=== PATIENT | female | born 1990 | race African-American/Black ===

== ENCOUNTER 2021-07-17 11:51 | Emergency (ER) | payer BC, SELFPAY ==
[2021-07-17 12:03] VITALS: BP 150/97; PULSE 88; RESP 16; TEMP 37.4; O2SAT 100
--- NOTE | 2021-07-17 12:33 | ED.URI ---
HPI - URI/Sore Throat General Chief Complaint: Upper Respiratory Infection Stated Complaint: Sore Throat Time Seen by Provider: 07/17/21 12:34 Source: patient, RN notes reviewed and old records reviewed Mode of arrival: ambulatory Limitations: no limitations History of Present Illness HPI Narrative: 31-year-old female presents to the [facility] with complaints of a sore throat for 3 days. Has been fighting cold-like symptoms since Andrew, 9 day. Swollen lymph nodes MD elicited complaint: sore throat Related Data Home Medications Medication Instructions Recorded Confirmed amlodipine 10 mg PO DAILY 07/17/21 07/17/21 losartan-hydrochlorothiazide 1 tablet PO DAILY 07/17/21 07/17/21 Allergies Allergy/AdvReac Type Severity Reaction Status Date / Time No Known Allergies Allergy Verified 07/17/21 12:20 Review of Systems Review of Systems: All systems reviewed & are unremarkable except as noted in HPI and below Constitutional: Constitutional: Reports no additional constitutional complaints, Denies chills and Denies fever(s) Eyes: Eyes: Reports no additional eye complaints ENT: Reports as per HPI Cardiovascular: Cardiovascular: Reports no additional cardiovascular complaints and Denies chest pain Respiratory: Respiratory: Denies cough, Denies dyspnea and Denies wheezing Gastrointestinal: Gastrointestinal: Reports no additional gastrointestinal complaints Genitourinary: Genitourinary: Reports no additional female genitourinary complaints Musculoskeletal: Musculoskeletal: Reports no additional musculoskeletal complaints Integumentary/Breasts: Skin/Breast: Reports system reviewed and no additional complaints, except as docu Neurologic: Reports system reviewed and no additional complaints, except as documented Psychiatric: Psychiatric: Reports no additional psychiatric complaints Allergic/Immunologic: Allergic/Immunologic: Reports no additional allergic/immunologic complaints Exam Const: General: no acute distress, alert and ill appearing acutely (Mild) Nutritional Appearance: well nourished Orientation/consciousness: patient oriented x3 Limitations: no limitations HENMT: Head: normal to inspection Ears: external ears normal, TM's normal bilaterally and EAC's normal Eyes: Pupils: Equal, round and reactive pupils present Neck: Neck: lymphadenopathy bilateral submandibular soft and tender Chest: Chest palpation & inspection: normal inspection of the chest Resp: Effort & Inspection: normal respiratory effort and no use of accessory muscles Auscultation: clear to auscultation bilaterally, no crackles, no rales, no rhonchi and no wheezes Cardio: Rate: regular rate Rhythm: regular rhythm GI: GI Palp: Yes Soft to palpation and No Tenderness to palpation present (GI) : General: Yes no CVA tenderness Back/Spine/Pelvis: Back: no CVA tenderness Skin: General skin exam: normal color Rashes: no rashes Wounds: no wounds Neuro: General: patient oriented x3, moves all extremities, no meningeal signs and no focal motor deficits Speech: normal speech Gait exam (Neuro): Normal gait present Extrem: General: normal to inspection Psych: Appearance: grossly normal and well kempt Mental Status: mental status grossly normal Affect: normal affect Attitude: cooperative Thought content: Yes Normal thought content present Course Course Emergency Course: Discharge instructions reviewed with patient, as well as provided in writing per nursing staff. The instructions also include specific and strict return/GO TO THE ER as well as f/u information. All questions have been answered, and the patient deny any further questions with discharge and discharge plan. Level of Care: Express Care Visit Vital Signs Vital signs: Vital Signs Temperature 99.4 F 07/17/21 12:03 Pulse Rate 88 07/17/21 12:03 Respiratory Rate 16 07/17/21 12:03 Blood Pressure 150/97 H 07/17/21 12:03 Pulse Oximetry 100 07/17/21 12:03
== END 2021-07-17 13:30 | disposition home or self-care (01) ==
PROVIDERS: Emergency Provider Nurse Practitioner
DX: R59.0 Localized enlarged lymph nodes (principal); J02.9 Acute pharyngitis, unspecified
CPT/HCPCS: 36416; 86308; 87081; 87880; 99213; G0463

== ENCOUNTER 2021-11-21 13:12 | Emergency (ER) | payer BC, SELFPAY ==
--- NOTE | ~2021-11-21 | XR_ITS ---
XR chest 2V DATE: 11/21/2021 13:43 INDICATION: Nonproductive cough, congestion for 2 days TECHNIQUE: 2 views COMPARISON: None FINDINGS: Normal heart size. No hilar or mediastinal enlargement. The lungs are normally inflated and clear of infiltrate or consolidation. No pleural effusion or pulmonary vascular congestion or pneumo thorax. Included skeletal structures are unremarkable. IMPRESSION: Negative chest Reviewed, dictated and finalized at location B. IMPRESSION: Negative chest
[2021-11-21 13:25] VITALS: BP 131/80; PULSE 98; RESP 16; TEMP 37.4; O2SAT 98
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
== END 2021-11-21 13:56 | disposition home or self-care (01) ==
PROVIDERS: Emergency Provider Nurse Practitioner Family
DX: J20.9 Acute bronchitis, unspecified (principal); I10 Essential (primary) hypertension
CPT/HCPCS: 71046; 99213; G0463

== ENCOUNTER 2021-11-28 08:29 | Emergency (ER) | payer BC, SELFPAY ==
[2021-11-28 08:49] VITALS: BP 134/93; PULSE 85; RESP 16; TEMP 36.3; O2SAT 100
--- NOTE | 2021-11-28 10:22 | ED.URI ---
HPI - URI/Sore Throat General Chief Complaint: Upper Respiratory Infection Stated Complaint: congestion, chills Time Seen by Provider: 11/28/21 09:18 Source: patient History of Present Illness HPI Narrative: 31 y/o female presents to the ER today for problems with sinus congestion, sinus pain and headache. She has cough and feels congested in her chest. Symptoms started 9 days ago. She was seen at urgent care last Saturday. They gave her prednisone which helped with her cough and respiratory symptoms. However, now she is having more sinus drainage and sinus pain. No fever or chills. No n/v/d. She denies feeling short of breath. She gets occasional wheezing but uses and inhaler for this and finds it helpful. Related Data Home Medications Medication Instructions Recorded Confirmed amlodipine 10 mg PO DAILY 07/17/21 11/21/21 losartan-hydrochlorothiazide 1 tablet PO DAILY 07/17/21 11/21/21 norethindrone (contraceptive) 0.35 mg PO DAILY 11/21/21 11/21/21 Allergies Allergy/AdvReac Type Severity Reaction Status Date / Time No Known Allergies Allergy Verified 11/21/21 13:18 Review of Systems Constitutional: Constitutional: Denies chills, Denies fatigue and Denies fever(s) Eyes: Eyes: Reports no additional eye complaints ENT: Reports as per HPI, Reports nasal congestion and Denies sore throat Cardiovascular: Cardiovascular: Denies chest pain Respiratory: Respiratory: Reports chest congestion, Reports cough, Denies dyspnea and Reports wheezing Gastrointestinal: Gastrointestinal: Denies diarrhea, Denies nausea and Denies vomiting Genitourinary: Genitourinary: Reports no additional female genitourinary complaints Musculoskeletal: Musculoskeletal: Denies myalgias and Denies arthralgias Integumentary/Breasts: Skin/Breast: Reports system reviewed and no additional complaints, except as docu and Denies rash Neurologic: Denies dizziness and Reports headache(s) Psychiatric: Psychiatric: Reports no additional psychiatric complaints Endocrine: Endocrine: Reports no additional endocrine complaints Hematologic/Lymphatic: Hematologic/Lymphatic: Reports no additional hematologic/lymphatic complaints Allergic/Immunologic: Allergic/Immunologic: Reports no additional allergic/immunologic complaints Exam Const: General: healthy appearing, no acute distress and alert Orientation/consciousness: patient oriented x3 HENMT: Head: normal to inspection Face and sinus: sinus tenderness frontal and ethmoid Throat: posterior oropharynx normal Eyes: Conjunctivae: conjunctivae normal Neck: Neck: normal visual inspection Chest: Chest palpation & inspection: normal inspection of the chest Resp: Effort & Inspection: normal respiratory effort Auscultation: clear to auscultation bilaterally, no crackles, no rales, no rhonchi and no wheezes Cardio: Rate: regular rate Rhythm: regular rhythm : General: Yes no CVA tenderness Urinary Catheter: Urinary Catheter: other Skin: General skin exam: normal color Rashes: no rashes Neuro: General: patient oriented x3, moves all extremities and no meningeal signs Extrem: General: normal to inspection Psych: Mental Status: mental status grossly normal Affect: normal affect Attitude: cooperative Course Vital Signs Vital signs: Vital Signs Temperature 36.3 C L 11/28/21 08:49 Pulse Rate 85 11/28/21 08:49 Respiratory Rate 16 11/28/21 08:49 Blood Pressure 134/93 H 11/28/21 08:49 Pulse Oximetry 100 11/28/21 08:49 Temperature 36.3 C L 11/28/21 08:49 Pulse Rate 85 11/28/21 08:49 Respiratory Rate 16 11/28/21 08:49 Blood Pressure 134/93 H 11/28/21 08:49 Pulse Oximetry 100 11/28/21 08:49 MDM - URI/Sore Throat Differential Diagnosis Differential diagnosis: Likely upper respiratory infection, sinusitis, viral infection, bronchitis, influenza and pharyngitis Discharge Plan Discharge Clinical Impression: Sinusitis Patient Disposition: Home, Self-Car
[2021-11-28 10:54] VITALS: BP 126/74; PULSE 84; RESP 18; TEMP 36.4; O2SAT 100
== END 2021-11-28 11:00 | disposition home or self-care (01) ==
PROVIDERS: Emergency Provider Nurse Practitioner Family
DX: J32.9 Chronic sinusitis, unspecified (principal)
CPT/HCPCS: 99283

== ENCOUNTER → 2022-01-11 09:11 | Outpatient (CLI) | payer BC, SELFPAY ==
--- NOTE | ~2022-01-11 | MMUS_ITS ---
EXAMINATION: MM diagnostic yaquelin BI w isra, US breast LT complete HISTORY: Left breast lump felt by physician. TECHNIQUE: Additional 3-D tomosynthesis images of the breasts were performed and synthetic 2-D images were generated. CAD analysis was submitted and interpreted. High resolution complete left breast ult rasound was performed. COMPARISON: No prior studies for comparison. BREAST PARENCHYMAL COMPOSITION: Breast composition is almost entirely fatty FINDINGS: MAMMOGRAPHIC FINDINGS: There are no suspicious masses, calcifications or architectural distortion in the left breast to sugg est malignancy. ULTRASOUND: Complete US of all 4 quadrants of the left breast and retroareolar region was reviewed. Normal hetero geneous echotexture without focal solid or cystic mass. IMPRESSION: 1. No evidence for malignancy in either breast. 2. Routine yearly screening mammogram and regular clinical breast examination are recommended. BI-RADS Category 1: Negative Reviewed, dictated and finalized at location A. IMPRESSION: 1. No evidence for malignancy in either breast. 2. Routine yearly screening mammogram and regular clinical breast examination a re recommended. BI-RADS Category 1: Negative
== END ==
PROVIDERS: PCP Nurse Practitioner; Visit Provider Nurse Practitioner
DX: N63.20 Unspecified lump in the left breast, unspecified quadrant (principal)
CPT/HCPCS: 76641; 77062; 77066; G0279

== ENCOUNTER 2022-04-18 08:11 | Emergency (ER) | payer BC, MEDICAID, SELFPAY ==
--- NOTE | ~2022-04-18 | CT_ITS ---
EXAMINATION: CT abdomen pelvis w con DATE: 04/18/2022 10:02 INDICATION: Left upper quadrant abdominal pain. Nausea. TECHNIQUE: Computed tomography (CT) of the abdomen and pelvis was performed with 100 mL Omnipaque 350 intravenous contrast. Automated exposure control and iterative reconstruction technique were employe d. The dose-length product was 480.02 mGy-cm. COMPARISON: None. FINDINGS: The visualized portions of the lung bases are clear without pneumonia or pleural effusion. The heart size is normal. No pericardial effusion. The liver, gallbladder, spleen, pancreas, adrenal glands, and kidneys are normal. There is a 4.3 cm fibroid in the uterus. There are no dilated loops o f bowel. The appendix is normal. There are no pathologically enlarged lymph nodes. There is physiolog ic fluid in the pelvis. There is a 2.6 cm corpus luteum cyst in right ovary. There is mild thoracolum bar spondylosis. IMPRESSION: 1. Uterine fibroid. Reviewed, dictated and finalized at location A. IMPRESSION: 1. Uterine fibroid.
[2022-04-18 08:13] VITALS: BP 135/89; PULSE 89; RESP 14; TEMP 36.5; O2SAT 100
--- NOTE | 2022-04-18 08:41 | ED.ABDPAIN ---
HPI - Abdominal Pain General Chief Complaint: Abdominal Pain Stated Complaint: ABD PAIN Time Seen by Provider: 04/18/22 08:37 History of Present Illness HPI narrative: Ot presents with LUQ and left chest pain for two months. Pt says was intermittent at first but now constant for a month. Pt denies injury. Pt denies fever or vomiting. Pt says she eats a lot of spicy food. Pt has seen her PCP but not helped or diagnosed so far. Related Data Home Medications Medication Instructions Recorded Confirmed amlodipine 10 mg tablet 10 mg PO DAILY 07/17/21 11/21/21 losartan 100 1 tablet PO DAILY 07/17/21 11/21/21 mg-hydrochlorothiazide 25 mg tablet norethindrone (contraceptive) 0.35 0.35 mg PO DAILY 11/21/21 11/21/21 mg tablet Allergies Allergy/AdvReac Type Severity Reaction Status Date / Time No Known Allergies Allergy Verified 04/18/22 08:11 Review of Systems Review of Systems: All systems reviewed & are unremarkable except as noted in HPI and below Exam Const: General: healthy appearing and no acute distress Nutritional Appearance: well nourished Orientation/consciousness: patient oriented x3 Limitations: no limitations Neck: Neck: normal visual inspection, no lymphadenopathy and no meningeal signs Chest: Chest palpation & inspection: tenderness (to superficial palpation and touch left side of chest) Resp: Effort & Inspection: normal respiratory effort Auscultation: clear to auscultation bilaterally Cardio: Rate: regular rate Rhythm: regular rhythm GI: GI Palp: Yes Soft to palpation and Yes Tenderness to palpation present (GI) (tender to light touch LUQ) Auscultation: normal bowel sounds Back/Spine/Pelvis: Back: no CVA tenderness Skin: General skin exam: normal color Rashes: no rashes Wounds: no wounds Neuro: General: patient oriented x3, moves all extremities, no meningeal signs and no focal motor deficits Cranial nerves: Yes Nystagmus not present Speech: normal speech Extrem: General: normal to inspection and no clubbing, cyanosis or edema Psych: Mental Status: mental status grossly normal Affect: normal affect Attitude: cooperative Course Vital Signs Vital signs: Vital Signs Temperature 97.7 F 04/18/22 08:13 Pulse Rate 89 04/18/22 08:13 Respiratory Rate 14 04/18/22 08:13 Blood Pressure 135/89 04/18/22 08:13 Pulse Oximetry 100 04/18/22 08:13 Oxygen Delivery Room Air 04/18/22 08:13 Temperature 97.7 F 04/18/22 08:13 Pulse Rate 85 04/18/22 11:18 Respiratory Rate 19 04/18/22 11:18 Blood Pressure 123/85 04/18/22 11:18 Pulse Oximetry 97 04/18/22 11:18 Oxygen Delivery Room Air 04/18/22 08:13 MDM - Abdominal Pain Lab Data Result diagrams: 04/18/22 08:46 04/18/22 08:46 Labs: Lab Results 04/18/22 04/18/22 04/18/22 Range/Units 08:46 08:46 09:25 WBC 9.5 (4.5-10.0) K/mm3 RBC 4.61 (4.2-5.4) M/mm3 Hgb 12.1 (12.0-15.0) g/dL Hct 40.3 (37.0-47.0) % MCV 87.4 (80-100) fl MCH 26.2 (26-34) pg MCHC 30.0 L (32-36) g/dl RDW 13.9 (11.5-14.5) % Plt Count 292 (150-375) k/mm3 MPV 10.8 H (7.4-10.4) fl Immature Gran % (Auto) 0.2 (0-0.5) % Neut % (Auto) 48.2 (45.5-73.1) % Lymph % (Auto) 35.6 (18.3-44.2) % [place] % (Auto) 9.3 H (2.6-8.5) % Eos % (Auto) 5.9 H (0-4.4) % Baso % (Auto) 0.8 (0.2-1.2) % Lymph # (Auto) 3.37 H (0.9-3.2) K/mm3 [place] # (Auto) 0.9 H (0.1-0.6) K/mm3 Eos # (Auto) 0.6 H (0-0.3) K/mm3 Baso # (Auto) 0.1 (0.0-0.1) K/mm3 Abs Immat Gran (auto) 0.02 (0.00-0.031) K/mm3 Absolute Neuts (auto) 4.6 (1.3-6.7) K/mm3 Absolute Nucleated RBC 0.0 (0.0-0.012) K/mm3 Nucleated RBC % 0.0 (0.0-0.2) % Sodium 140 (137-145) mmol/L Potassium 3.5 (3.4-5.0) mmol/L Chloride 105 (98-107) mmol/L Carbon Dioxide 25 (22-30) mmol/L Anion Gap 10 (8-16) mmol/L BUN 19 H (7-17) mg/dL Creatini
[2022-04-18 08:51] LABS: Basophils Absolute Auto 0.1 K/mm3 (0.0-0.1); Basophils Percent Auto 0.8 % (0.2-1.2); Eosinophils Absolute Auto 0.6 K/mm3 (0-0.3); Eosinophils Percent Auto 5.9 % (0-4.4); Hematocrit 40.3 % (37.0-47.0); Hemoglobin 12.1 g/dL (12.0-15.0); Immature Granulocyte Absolute 0.02 K/mm3 (0.00-0.031); Immature Granulocyte Percent A 0.2 % (0-0.5); Lymphocytes Absolute Auto 3.37 K/mm3 (0.9-3.2); Lymphocytes Percent Auto 35.6 % (18.3-44.2); Mean Corpuscular Hemoglobin 26.2 pg (26-34); Mean Corpuscular Volume 87.4 fl (80-100); Mean Platelet Volume 10.8 fl (7.4-10.4); Monocytes Absolute Auto 0.9 K/mm3 (0.1-0.6); Monocytes Percent Auto 9.3 % (2.6-8.5); Neutrophils Absolute Auto 4.6 K/mm3 (1.3-6.7); Neutrophils Percent Auto 48.2 % (45.5-73.1); Platelet Count Result 292 k/mm3 (150-375); Red Blood Count 4.61 M/mm3 (4.2-5.4); Red Cell Distribution Width 13.9 % (11.5-14.5); White Blood Count 9.5 K/mm3 (4.5-10.0)
[2022-04-18] MEDS: KETOROLAC 30 MG/ML VIAL (*BKC) IV PUSH (08:53)
[2022-04-18 09:03] LABS: Alanine Aminotransferase 28 U/L (6-35); Albumin Level 4.4 g/dL (3.5-5.1); Alkaline Phosphatase 59 U/L (38-126); Anion Gap 10 mmol/L (8-16); Aspartate Amino Transferase 34 U/L (14-36); Bilirubin,Total 0.3 mg/dL (0.2-1.3); Blood Urea Nitrogen 19 mg/dL (7-17); Calcium 8.9 mg/dL (8.4-10.2); Carbon Dioxide 25 mmol/L (22-30); Chloride 105 mmol/L (98-107); Estimated Glomerular Filt Rate > 60; Glucose 99 mg/dL (65-110); Lipase 96 U/L (23-300); Potassium 3.5 mmol/L (3.4-5.0); Sodium 140 mmol/L (137-145)
[2022-04-18 09:52] LABS: Add Urine Microscopic? YES; Appearance Urine Cloudy (Clear); Bilirubin Urine Negative (Negative); Blood Urine 2+ (Negative); Color Urine Yellow (Yellow); Glucose Urine UA Negative (Negative); Ketones Urine Negative (Negative); Leukocyte Esterase Ur Negative LEU/UL (Negative); Nitrate Urine Negative (Negative); Protein Urine Trace mg/dL (Negative); Specific Grav Ur 1.025 (1.001-1.035); Urobilinogen Urine 0.2 mg/dL (<2.0)
[2022-04-18 10:02] LABS: Bacteria Urine Trace /hpf; Mucus Urine Few /lpf; Squamous Epithelial Cell Urine Many /hpf (Few)
[2022-04-18 11:18] VITALS: BP 123/85; PULSE 85; RESP 19; O2SAT 97
== END 2022-04-18 11:10 | disposition home or self-care (01) ==
PROVIDERS: Emergency Provider Emergency Medicine
DX: R07.89 Other chest pain (principal); R10.12 Left upper quadrant pain; D25.9 Leiomyoma of uterus, unspecified
CPT/HCPCS: 36415; 74177; 80053; 81001; 81025; 83690; 85025; 96374; 99284; J1885; Q9967

== ENCOUNTER 2022-04-27 22:00 | Emergency (ER) | payer BC, MEDICAID, SELFPAY ==
[2022-04-27 22:03] VITALS: BP 124/81; PULSE 102; RESP 16; TEMP 37.3; O2SAT 100
[2022-04-28 00:09] VITALS: BP 122/84; PULSE 83; RESP 17; TEMP 36.3; O2SAT 100
--- NOTE | 2022-04-28 00:16 | ED.ABDPAIN ---
HPI - Abdominal Pain General Chief Complaint: Abdominal Pain Stated Complaint: pelvic pain Time Seen by Provider: 04/27/22 23:59 History of Present Illness HPI narrative: Patient is a 31-year-old female with a history of hypertension presenting with abdominal pain. Patient states that for the last 3 days she has had lower abdominal cramping. States that it feels like menstrual cramps but more severe. She denies any vaginal bleeding or discharge. States that she has also been urinating more frequently than normal. Patient states that her last menstrual period was approximately 4 weeks ago. She reports nausea but no vomiting. States that she had a normal bowel movement about an hour ago. She denies fevers, chest pain, shortness of breath, cough, diarrhea, leg swelling. Related Data Home Medications Medication Instructions Recorded Confirmed amlodipine 10 mg tablet 10 mg PO DAILY 07/17/21 11/21/21 losartan 100 1 tablet PO DAILY 07/17/21 11/21/21 mg-hydrochlorothiazide 25 mg tablet norethindrone (contraceptive) 0.35 0.35 mg PO DAILY 11/21/21 11/21/21 mg tablet Allergies Allergy/AdvReac Type Severity Reaction Status Date / Time No Known Allergies Allergy Verified 04/27/22 22:02 Review of Systems Review of Systems: All systems reviewed & are unremarkable except as noted in HPI and below Exam Narrative: GENERAL: Well-appearing, well-nourished, and in no acute distress. HEAD: Normocephalic, atraumatic. EYES: PERRLA and EOMI. ENT: Nares clear, no rhinorrhea or epistaxis. Mucous membranes moist. NECK: Supple. CHEST: Clear to auscultation. No respiratory distress. HEART: Regular rate and rhythm. No murmur heard. Normal peripheral pulses. ABDOMEN: Soft, nontender, nondistended, normal active bowel sounds. EXTREMITIES: Normal range of motion. No edema. SKIN: Warm, dry, no rash. NEURO: No focal deficits. Alert and oriented x3. PSYCH: Normal mood and affect. Course Course Emergency Course: Patient is a 31-year-old female presenting with lower abdominal pain. Vitals are within normal limits. Patient is nontoxic and in no acute distress. Exam is remarkable for the above. Blood work is remarkable for mildly elevated beta-hCG at 85. On reevaluation, the patient is resting comfortably. She states that she feels more comfortable. Patient likely has a very early . I spoke with Dr. Murillo with [facility] who recommends repeat beta-hCG in 2 days. This order has been placed and I advised the patient to go to a [facility] location to have this completed on Saturday. Also provided the number for Dr. Murillo's office for the patient to call to schedule outpatient follow-up. Strict return precautions were given. Patient voiced understanding and is agreeable with plan. Discharged in stable condition. Vital Signs Vital signs: Vital Signs Temperature 99.2 F 04/27/22 22:03 Pulse Rate 102 H 04/27/22 22:03 Respiratory Rate 16 04/27/22 22:03 Blood Pressure 124/81 04/27/22 22:03 Pulse Oximetry 100 04/27/22 22:03 Oxygen Delivery Room Air 04/27/22 22:03 Temperature 97.4 F L 04/28/22 00:09 Pulse Rate 60 04/28/22 01:46 Respiratory Rate 17 04/28/22 01:46 Blood Pressure 109/78 04/28/22 01:46 Pulse Oximetry 100 04/28/22 01:46 Oxygen Delivery Room Air 04/27/22 22:03 MDM - Abdominal Pain Lab Data Result diagrams: 04/28/22 00:06 04/28/22 00:06 Labs: Lab Results 04/28/22 04/28/22 04/28/22 Range/Units 00:05 00:06 00:06 WBC 11.0 H (4.5-10.0) K/mm3 RBC 4.67 (4.2-5.4) M/mm3 Hgb 12.3 (12.0-15.0) g/dL Hct 40.3 (37.0-47.0) % MCV 86.3 (80-100) fl MCH 26.3 (26-34) pg MCHC 30.5 L (32-36) g/dl RDW 13.9 (11.5-14.5) % Plt Count 275 (150-375) k/mm3 MPV 10.6 H (7.4-10.4) fl Immature Gran % (Auto) 0.4 (0-0.5) % Neut % (Auto) 58.2 (45.5-73.1) % Lymph % (Auto) 27.2 (18.3-44.2) % [place] % (Auto) 9.3
[2022-04-28 00:23] LABS: Basophils Absolute Auto 0.1 K/mm3 (0.0-0.1); Basophils Percent Auto 0.6 % (0.2-1.2); Eosinophils Absolute Auto 0.5 K/mm3 (0-0.3); Eosinophils Percent Auto 4.3 % (0-4.4); Hematocrit 40.3 % (37.0-47.0); Hemoglobin 12.3 g/dL (12.0-15.0); Immature Granulocyte Absolute 0.04 K/mm3 (0.00-0.031); Immature Granulocyte Percent A 0.4 % (0-0.5); Lymphocytes Absolute Auto 2.98 K/mm3 (0.9-3.2); Lymphocytes Percent Auto 27.2 % (18.3-44.2); Mean Corpuscular HGB Conc 30.5 g/dl (32-36); Mean Corpuscular Hemoglobin 26.3 pg (26-34); Mean Corpuscular Volume 86.3 fl (80-100); Mean Platelet Volume 10.6 fl (7.4-10.4); Monocytes Percent Auto 9.3 % (2.6-8.5); Neutrophils Absolute Auto 6.4 K/mm3 (1.3-6.7); Neutrophils Percent Auto 58.2 % (45.5-73.1); Platelet Count Result 275 k/mm3 (150-375); Red Blood Count 4.67 M/mm3 (4.2-5.4); Red Cell Distribution Width 13.9 % (11.5-14.5)
--- NOTE | 2022-04-28 00:24 | PC.NURSE ---
Called lab to add on beta HCG. Spoke with
[2022-04-28 00:27] LABS: Add Urine Microscopic? YES; Appearance Urine Clear (Clear); Bilirubin Urine Negative (Negative); Blood Urine 1+ (Negative); Color Urine Yellow (Yellow); Glucose Urine UA Negative (Negative); Ketones Urine Negative (Negative); Leukocyte Esterase Ur Negative LEU/UL (Negative); Mucus Urine Rare /lpf; Nitrate Urine Negative (Negative); Protein Urine Negative (Negative); Specific Grav Ur 1.024 (1.001-1.035); Squamous Epithelial Cell Urine Rare /hpf (Few); Urobilinogen Urine Negative mg/dL (<2.0); WBC Urine 0-3 /hpf
[2022-04-28 00:31] LABS: Alanine Aminotransferase 18 U/L (6-35); Albumin Level 4.5 g/dL (3.5-5.1); Alkaline Phosphatase 55 U/L (38-126); Anion Gap 11 mmol/L (8-16); Aspartate Amino Transferase 27 U/L (14-36); Bilirubin,Total 0.2 mg/dL (0.2-1.3); Blood Urea Nitrogen 18 mg/dL (7-17); Calcium 9.7 mg/dL (8.4-10.2); Carbon Dioxide 25 mmol/L (22-30); Chloride 101 mmol/L (98-107); Estimated CRCL calculation 93 ml/min; Estimated Glomerular Filt Rate > 60; Glucose 95 mg/dL (65-110); Lipase 128 U/L (23-300); Potassium 3.3 mmol/L (3.4-5.0); Sodium 137 mmol/L (137-145)
[2022-04-28 00:39] VITALS: O2SAT 94
[2022-04-28 00:45] VITALS: O2SAT 100
[2022-04-28 00:57] LABS: Beta HCG Quantitative 85.39 mIU/ML
[2022-04-28 01:01] VITALS: BP 118/81
[2022-04-28 01:46] VITALS: BP 109/78; PULSE 60; RESP 17; O2SAT 100
[2022-04-28] MEDS: ONDANSETRON INJ 4 MG/2 ML VIAL IV PUSH (01:53)
== END 2022-04-28 02:46 | disposition home or self-care (01) ==
PROVIDERS: Emergency Medicine; Emergency Provider Emergency Medicine
DX: R10.30 Lower abdominal pain, unspecified (principal); R79.89 Other specified abnormal findings of blood chemistry; I10 Essential (primary) hypertension
CPT/HCPCS: 36415; 80053; 81001; 81025; 83690; 84702; 85025; 96365; 96375; 99284; J0131; J2405

== ENCOUNTER 2022-05-01 10:27 | Outpatient (CLI) | payer BC, MEDICAID, SELFPAY | END 2022-05-01 10:28 | disposition home or self-care (01) | PROVIDERS: Visit Provider Emergency Medicine | DX: E34.9 Endocrine disorder, unspecified (principal) | CPT/HCPCS: 36415; 84702 ==

== ENCOUNTER 2022-05-08 17:11 | Outpatient (CLI) | payer BC, MEDICAID, SELFPAY | END 2022-05-08 17:12 | disposition home or self-care (01) | LOC: ANHLAB 17:13 | PROVIDERS: Visit Provider Student in an Organized Health Care Education/Training Program | DX: E34.9 Endocrine disorder, unspecified (principal); N91.2 Amenorrhea, unspecified | CPT/HCPCS: 36415; 84702 ==

== ENCOUNTER 2022-05-12 08:04 | Emergency (ER) | payer BC, MEDICAID, SELFPAY ==
--- NOTE | ~2022-05-12 | US_ITS ---
EXAMINATION: US OB <=14 wk fetus w TV DATE: 05/12/2022 09:45 INDICATION: Light spotting. TECHNIQUE: Real-time transabdominal and transvaginal obstetric ultrasound. FINDINGS: No prior studies for comparison. The uterus measures 8.3 x 4.9 x 7.3 cm. There is a small intrauterine gestational sac corresponding t o a 4 week 6 day gestation. No pole or yolk sac are identified. The ovaries are unremarkable. T here is a corpus luteal cyst measuring 1.8 cm in the right ovary. There is normal vascular flow in th e ovaries. Small amount of free fluid in the pelvic cul-de-sac. IMPRESSION: 1. Small intrauterine gestational sac corresponding to a 4 week 6 day gestation. No pole identi fied. Recommend follow-up with serial quantitative beta-hCG levels and ultrasound as clinically indic ated. Reviewed, dictated and finalized at location A.
--- NOTE | 2022-05-12 08:29 | ED.GENADULT ---
HPI - General Adult General Chief complaint: Vaginal Bleeding Stated complaint: vaginal bleeding Time Seen by Provider: 05/12/22 08:15 History of Present Illness HPI narrative: This is a 31-year-old female at 7 weeks gestation presenting ED with a chief complaint of vaginal bleeding. patient has had light spotting over the last several days. This morning she noticed passage of dark red blood with tissue in it. She is concerned that she is having a miscarriage. She did have some crampy abdominal pain yesterday but is currently asymptomatic. Patient saw her credit clerk on Saturday and had a Pap smear done at that time. Related Data Home Medications Medication Instructions Recorded Confirmed amlodipine 10 mg tablet 10 mg PO DAILY 07/17/21 11/21/21 losartan 100 1 tablet PO DAILY 07/17/21 11/21/21 mg-hydrochlorothiazide 25 mg tablet prenat.vits,aditi,bqu-wtcj-kdzcb 1 tablet PO DAILY 05/08/22 Allergies Allergy/AdvReac Type Severity Reaction Status Date / Time No Known Allergies Allergy Verified 05/12/22 08:38 Review of Systems Review of Systems: CONSTITUTIONAL: Denies night sweats. EYES: No eye pain ENT: Denies rhinorrhea CARDIOVASCULAR: Denies palpitations RESPIRATORY: Denies hemoptysis GASTROINTESTINAL: Denies hematemesis GENITOURINARY: Denies hematuria. SKIN: Denies rash MUSCULOSKELETAL: Denies myalgia. NEUROLOGIC: Denies weakness. PSYCHIATRIC: Denies delusions [facility] Past Medical History Medical History (Updated 05/12/22 @ 10:19 by Shukri Her MD) History of Hypertension Family History Family History (Updated 05/08/22 @ 15:47 by Christy Willson MA) Mother Asthma Cervical cancer Hypertension Sibling Asthma Hypertension Grandparent Diabetes mellitus Social History Social History Smoking status: Never smoker Exam Narrative: APPEARANCE: No apparent distress. Head atraumatic. EYES: PERRLA/EOMI, NOSE: Normal no drainage NECK: Supple, Trachea midline RESPIRATORY: CTAB, No increased work of breathing. CARDIOVASCULAR: S1S2 appreciated ABDOMINAL: Soft, nontender, nondistended, MUSCULOSKELETAl: No obvious deformities NEURO: Alert. Moving 4/4 extremities SKIN:: Warm, dry. Normal color PSYCHIATRIC: Normal affect Pelvic exam revealed dark red blood in the vaginal vault. Cervical os was closed Course Vital Signs Vital signs: Vital Signs Temperature 98.6 F 05/12/22 08:30 Pulse Rate 74 05/12/22 08:30 Respiratory Rate 20 05/12/22 08:30 Blood Pressure 129/89 05/12/22 08:30 Pulse Oximetry 100 05/12/22 08:30 Oxygen Delivery Room Air 05/12/22 08:30 Temperature 98.6 F 05/12/22 08:30 Pulse Rate 81 05/12/22 09:47 Respiratory Rate 18 05/12/22 09:47 Blood Pressure 127/82 05/12/22 09:47 Pulse Oximetry 100 05/12/22 09:47 Oxygen Delivery Room Air 05/12/22 08:30 Medical Decision Making MDM Narrative Medical decision making narrative: this is a 31-year-old female presenting ED with vaginal bleeding. Patient is 7 weeks . A transvaginal ultrasound has been ordered to evaluate. Lab work has been ordered. Pelvic exam revealed dark red blood in the vaginal vault with a closed cervical os. Patient is Rh positive and does not require RhoGAM. Transvaginal ultrasound was interpreted as: 1. Small intrauterine gestational sac corresponding to a 4 week 6 day gestation. No pole identified. Recommend follow-up with serial quantitative beta-hCG levels and ultrasound as clinically indicated. Patient had a quantitative HCG performed on 05/08 which was 670. Her HCG today is 610. Given the patient's vaginal bleeding this is consistent with a miscarriage. I spoke with the patient's OBGYN Dr. Mclaughlin who concurs my assessment. She would like patient to follow up with them in clinic on Saturday. Patient has been given instructions return if she d
[2022-05-12 08:30] VITALS: BP 129/89; PULSE 74; RESP 20; TEMP 37; O2SAT 100
[2022-05-12 09:10] LABS: Basophils Absolute Auto 0.1 K/mm3 (0.0-0.1); Basophils Percent Auto 0.8 % (0.2-1.2); Eosinophils Absolute Auto 0.3 K/mm3 (0-0.3); Eosinophils Percent Auto 3.3 % (0-4.4); Hematocrit 40.6 % (37.0-47.0); Hemoglobin 12.4 g/dL (12.0-15.0); Immature Granulocyte Absolute 0.02 K/mm3 (0.00-0.031); Immature Granulocyte Percent A 0.3 % (0-0.5); Lymphocytes Absolute Auto 2.28 K/mm3 (0.9-3.2); Lymphocytes Percent Auto 28.6 % (18.3-44.2); Mean Corpuscular HGB Conc 30.5 g/dl (32-36); Mean Corpuscular Hemoglobin 26.6 pg (26-34); Mean Corpuscular Volume 87.1 fl (80-100); Mean Platelet Volume 10.8 fl (7.4-10.4); Monocytes Absolute Auto 0.6 K/mm3 (0.1-0.6); Monocytes Percent Auto 6.9 % (2.6-8.5); Neutrophils Absolute Auto 4.8 K/mm3 (1.3-6.7); Neutrophils Percent Auto 60.1 % (45.5-73.1); Platelet Count Result 265 k/mm3 (150-375); Red Blood Count 4.66 M/mm3 (4.2-5.4); Red Cell Distribution Width 13.6 % (11.5-14.5)
[2022-05-12 09:16] LABS: Appearance Urine Cloudy (Clear); Bilirubin Urine Negative (Negative); Blood Urine 3+ (Negative); Color Urine Yellow (Yellow); Glucose Urine UA Negative (Negative); Ketones Urine Negative (Negative); Leukocyte Esterase Ur Trace LEU/UL (Negative); Nitrate Urine Negative (Negative); Protein Urine 2+ mg/dL (Negative); Specific Grav Ur 1.015 (1.001-1.035); Urobilinogen Urine 0.2 mg/dL (<2.0); pH Urine 8.5 (5.0-9.0)
[2022-05-12 09:23] LABS: Anion Gap 11 mmol/L (8-16); Blood Urea Nitrogen 11 mg/dL (7-17); Calcium 8.9 mg/dL (8.4-10.2); Carbon Dioxide 26 mmol/L (22-30); Chloride 103 mmol/L (98-107); Estimated CRCL calculation 93 ml/min; Estimated Glomerular Filt Rate > 60; Glucose 109 mg/dL (65-110); Potassium 3.4 mmol/L (3.4-5.0); Sodium 140 mmol/L (137-145)
[2022-05-12 09:28] LABS: RBC Urine >75 /hpf (0-2); Squamous Epithelial Cell Urine Moderate /hpf (Few)
[2022-05-12 09:32] LABS: Add Urine Microscopic? YES
[2022-05-12 09:47] VITALS: BP 127/82; PULSE 81; RESP 18; O2SAT 100
== END 2022-05-12 10:44 | disposition home or self-care (01) ==
PROVIDERS: Emergency Provider Emergency Medicine
DX: O03.9 Complete or unspecified spontaneous abortion without complication (principal); O16.1 Unspecified maternal hypertension, first trimester; Z3A.01 Less than 8 weeks gestation of pregnancy
CPT/HCPCS: 36415; 76801; 76817; 80048; 81001; 81025; 84702; 85025; 86850; 86900; 86901; 99284

== ENCOUNTER 2022-06-11 08:02 | Outpatient (CLI) | payer BC, MEDICAID, SELFPAY ==
[2022-06-11 08:50] LABS: Beta HCG Quantitative < 2.39 mIU/ML
== END 2022-06-11 08:03 | disposition home or self-care (01) ==
PROVIDERS: Visit Provider Student in an Organized Health Care Education/Training Program
DX: O03.9 Complete or unspecified spontaneous abortion without complication (principal); Z3A.00 Weeks of gestation of pregnancy not specified
CPT/HCPCS: 36415; 84702

== ENCOUNTER 2022-09-10 13:43 | Outpatient (CLI) | payer MEDICAID, SELFPAY ==
[2022-09-14 04:37] LABS: Progesterone 26.2 ng/mL (***)
== END 2022-09-10 13:44 | disposition home or self-care (01) ==
LOC: ANHLAB 13:44
PROVIDERS: Visit Provider Obstetrics & Gynecology
DX: O09.299 Supervision of pregnancy with other poor reproductive or obstetric history, unspecified trimester (principal); Z3A.00 Weeks of gestation of pregnancy not specified
CPT/HCPCS: 36415; 84144; 84702

== ENCOUNTER 2022-09-12 11:01 | Outpatient (CLI) | payer MEDICAID, SELFPAY | END 2022-09-12 11:02 | disposition home or self-care (01) | PROVIDERS: Visit Provider Obstetrics & Gynecology | DX: O09.299 Supervision of pregnancy with other poor reproductive or obstetric history, unspecified trimester (principal); Z3A.00 Weeks of gestation of pregnancy not specified | CPT/HCPCS: 36415; 84702 ==

== ENCOUNTER 2022-09-28 20:16 | Emergency (ER) | payer BC, MEDICAID, SELFPAY ==
[2022-09-28 20:32] VITALS: BP 150/104; PULSE 88; RESP 16; TEMP 36.5; O2SAT 100
--- NOTE | 2022-09-28 20:59 | ED.DENTAL ---
HPI - Dental/Oral General Chief complaint: Dental/Oral Stated complaint: pain, jaw pain 7 weeks Time Seen by Provider: 09/28/22 20:39 History of Present Illness HPI Narrative: Patient is a 32-year-old female who presents ER with left-sided jaw pain. Located tooth #17. No swelling but pain radiates into the ear. Has fractured tooth in location. Recently found out she is 7 weeks . She is scheduled to establish care with her OB next week. Has not been on any pain medication or antibiotics. No difficulty breathing or swallowing. Patient has no pelvic pain or vaginal bleeding/discharge. Related Data Home Medications Medication Instructions Recorded Confirmed amlodipine 10 mg tablet 10 mg PO DAILY 07/17/21 11/21/21 escitalopram oxalate 20 mg tablet 20 mg PO DAILY 05/24/22 folic acid 1 mg tablet 1 mg PO DAILY 05/24/22 pantoprazole 40 mg tablet,delayed 40 mg PO QAM 05/24/22 release Allergies Allergy/AdvReac Type Severity Reaction Status Date / Time No Known Allergies Allergy Verified 09/28/22 20:32 Review of Systems Constitutional: Constitutional: Denies chills, Denies fatigue and Denies fever(s) ENT: Denies nasal congestion and Denies sore throat Comments: Left jaw/dental pain Genitourinary: Genitourinary: Denies abnormal vaginal bleeding, Denies pelvic pain and Denies vaginal discharge PMFSH Past Medical History Medical History History of 1 History of x1 for severely elevated BP Hypertension Family History Family History Mother Asthma Cervical cancer Hypertension Sibling Asthma Hypertension Grandparent Diabetes mellitus Social History Social History Smoking status: Never smoker Exam Narrative: GENERAL: Well-appearing, well-nourished, and in no acute distress. HEAD: Normocephalic, atraumatic. ENT: Mucous membranes moist. Fractured tooth #17 without obvious abscess. TMs normal bilaterally. Tender over the lower jaw and not fractured to this. NECK: Supple. CHEST: Clear to auscultation. No respiratory distress. HEART: Regular rate and rhythm. Normal peripheral pulses. NEURO: Alert and oriented x3. PSYCH: Normal mood and affect. Course Course Emergency Course: Discussed treatment plan with patient and verbalized understanding. Discharge home with pain control and antibiotic Vital Signs Vital signs: Vital Signs Temperature 97.7 F 09/28/22 20:32 Pulse Rate 88 09/28/22 20:32 Respiratory Rate 16 09/28/22 20:32 Blood Pressure 150/104 H 09/28/22 20:32 Pulse Oximetry 100 09/28/22 20:32 Oxygen Delivery Room Air 09/28/22 20:32 Temperature 97.7 F 09/28/22 20:32 Pulse Rate 70 09/28/22 21:33 Respiratory Rate 18 09/28/22 21:33 Blood Pressure 132/93 H 09/28/22 21:33 Pulse Oximetry 96 09/28/22 21:33 Oxygen Delivery Room Air 09/28/22 20:32 Discharge Plan Discharge Clinical Impression: Pain, dental Patient Disposition: Home, Self-Care Condition: Stable Instructions: Antibiotic Form, Toothache (ED) Additional Instructions: Return the ER if you cannot breathe, you cannot swallow, you have fever over 100.4 ?F, you have additional concerns. Prescriptions: New amoxicillin-pot clavulanate 875-125 mg tablet 1 tablet PO Q12H Qty: 20 0RF oxycodone-acetaminophen [Percocet] 5-325 mg tablet 1 tablet PO Q6H PRN (Reason: pain) Qty: 12 0RF No Action amlodipine 10 mg tablet 10 mg PO DAILY (DME) blood pressure monitor Kit See Rx Instructions .Route Qty: 1 0RF Rx Instructions: As directed pantoprazole 40 mg tablet,delayed release (DR/EC) 40 mg PO QAM escitalopram oxalate 20 mg tablet 20 mg PO DAILY folic acid 1 mg tablet 1 mg PO DAILY progesterone micronized 100 mg capsule
[2022-09-28 21:07] VITALS: BP 157/105; PULSE 70; RESP 18; O2SAT 100
[2022-09-28 21:33] VITALS: BP 132/93; PULSE 70; RESP 18; O2SAT 96
== END 2022-09-28 21:34 | disposition home or self-care (01) ==
PROVIDERS: Emergency Provider Emergency Medicine
DX: O99.611 Diseases of the digestive system complicating pregnancy, first trimester (principal); K08.89 Other specified disorders of teeth and supporting structures; O16.1 Unspecified maternal hypertension, first trimester; Z3A.01 Less than 8 weeks gestation of pregnancy
CPT/HCPCS: 99283

== ENCOUNTER 2023-08-03 12:51 | Emergency (ER) | payer OTHER, SELFPAY ==
[2023-08-03] VITALS (13 sets, daily range): BP systolic 132–153; BP diastolic 85–102; PULSE 81–105; RESP 16–23; TEMP 37.3; O2SAT 98–100
--- NOTE | ~2023-08-03 | XR_ITS ---
XR chest 2V DATE: 08/03/2023 13:20 INDICATION: Mid chest pain extending into the upper left chest TECHNIQUE: 2 views, AP and lateral projections COMPARISON: 11/21/2021 2 view chest FINDINGS: Mild cardiomegaly is suggested. No pulmonary infiltrate or consolidation, pleural effusion or pulmonary vascular congestion or pneumothorax. No hilar or mediastinal enlargement. IMPRESSION: Mild cardiomegaly is suggested No active pulmonary disease Reviewed, dictated and finalized at location A. M PRESSER
--- NOTE | ~2023-08-03 | CT_ITS ---
EXAMINATION: CTA chest PE protocol DATE: 08/03/2023 15:36 INDICATION: cp, elevated d dimer TECHNIQUE: Computed tomography angiography (CTA) of the chest was performed with 100 mL Omnipaque-350 intravenous contrast timed to evaluate the pulmonary arteries. Coronal maximum intensity projection 3D-reconstructions were created by the technologist. The dose-length product (DLP) was 294.15 mGy-cm. Automated exposure control and iterative reconstruction technique were employed. COMPARISON: None. FINDINGS: Lung parenchyma and airways: Clear. Pleura: Unremarkable. Thoracic inlet, axillae and chest wall: Unremarkable. Thoracic aorta: Normal. Mediastinum: Normal. Heart and pericardium: Normal. Coronary artery calcifications: Absent. Upper abdomen: No significant finding. Bones: No acute osseous finding. Pulmonary arteries: Study quality: Motion artifact in the left lower lobe, overall adequate. No pulmo nary emboli detected. IMPRESSION: No CT evidence of acute pulmonary embolus. No acute intrathoracic process detected. Reviewed, dictated and finalized at location K. [facility] [employer]
--- NOTE | 2023-08-03 12:57 | ECG_ITS ---
Measurements Intervals [place] Rate: 97 P: 44 OK: 151 QRS: 31 QRSD: 86 T: 20 QT: 274 QTc: 348 Interpretive Statements SINUS RHYTHM POSSIBLE LEFT ATRIAL ENLARGEMENT CANNOT RULE OUT SEPTAL INFARCT, AGE INDETERMINATE BORDERLINE ST-T WAVE ABNORMALITY- INF/LAT LEADS ABNORMAL ECG NO PREVIOUS ECG AVAILABLE FOR COMPARISON Electronically Signed On 08-03-2023 15:19:13 [employer] by Allen Wallace D.O.
--- NOTE | 2023-08-03 13:02 | ED.GENADULT ---
[facility] - General Adult General Chief complaint: Chest Pain Stated complaint: chest pain Time Seen by Provider: 08/03/23 12:52 Source: patient Mode of arrival: ambulatory Limitations: no limitations History of Present Illness HPI narrative: This is a 33-year-old female who presents to the ED with chief complaint of 5 days of chest pain intermittently. Reports is located on the left side. Denies any radiation of pain. Reports this is occurred several times in the past and ibuprofen typically helps. Today it seemed a little worse so she thought she would get checked out. She also has secondary complaints of bilateral marley burning when standing on them too long. 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 Denies palpitations, cough, shortness of breath, leg swelling. Denies fevers, chills, rash, recent illness,. Related Data Home Medications Medication Instructions Recorded Confirmed amlodipine 10 mg tablet 10 mg PO DAILY 07/17/21 11/21/21 escitalopram oxalate 20 mg tablet 20 mg PO DAILY 05/24/22 folic acid 1 mg tablet 1 mg PO DAILY 05/24/22 pantoprazole 40 mg tablet,delayed 40 mg PO QAM 05/24/22 release Allergies Allergy/AdvReac Type Severity Reaction Status Date / Time No Known Allergies Allergy Verified 09/28/22 20:32 Review of Systems Review of Systems: All systems as dictated in [facility] Past Medical History Medical History History of 1 History of x1 for severely elevated BP Hypertension Family History Family History Mother Asthma Cervical cancer Hypertension Sibling Asthma Hypertension Grandparent Diabetes mellitus Social History Social History Smoking status: Never smoker Exam Narrative: GENERAL: Well-appearing, well-nourished, and in no acute distress. HEAD: Normocephalic, atraumatic. EYES: PERRLA and EOMI. ENT: Nares clear, no rhinorrhea or epistaxis. Mucous membranes moist. Oropharynx without tonsillar hypertrophy exudate or other lesions. NECK: Supple. No adenopathy or masses. CHEST: No respiratory distress. Clear to auscultation. No wheezes rales or rhonchi HEART: Regular rate and rhythm. No murmur heard. Normal peripheral pulses. ABDOMEN: Soft, nontender, nondistended, normal active bowel sounds. MSK: Normal range of motion. No edema. SKIN: Warm, dry, no rash. NEURO: Alert and oriented x3. No focal deficits. PSYCH: Normal mood and affect. Course Vital Signs Vital signs: Vital Signs Pulse Rate 105 H 08/03/23 13:02 Respiratory Rate 22 H 08/03/23 13:02 Blood Pressure 139/94 H 08/03/23 13:02 Temperature 99.1 F 08/03/23 13:12 Pulse Rate 94 08/03/23 16:47 Respiratory Rate 20 08/03/23 16:47 Blood Pressure 136/85 08/03/23 16:47 Pulse Oximetry 98 08/03/23 16:47 Oxygen Delivery Room Air 08/03/23 13:12 Medical Decision Making MDM Narrative Medical decision making narrative: this is a 33-year-old female who presents to the ED with chief complaint of chest pain. Vitals show initial slight tachycardia tachypnea. Exam is otherwise intact. No tenderness and no rash. EKG shows sinus rhythm with no acute ischemic findings. Serial troponins are negative. basic lab work is unremarkable. D-dimer is slightly elevated. CTA was ordered and is negative for any pulmonary embolism or other acute finding in the heart or lungs. chest x-ray shows cardiomegaly but patient is just recently , suspect this is related. Symptoms consistent with atypical chest pain. Maybe little bit of inflammation. She does well with naproxen. She would like to go home and continue to trial naproxen. Heart score is 1. Pt will be discharged in stable condition. Return precautions given and suppo
[2023-08-03 13:12] LABS: Basophils Absolute Auto 0.1 K/mm3 (0.0-0.1); Basophils Percent Auto 0.5 % (0.2-1.2); Eosinophils Absolute Auto 0.2 K/mm3 (0-0.3); Eosinophils Percent Auto 1.9 % (0-4.4); Hematocrit 36.6 % (37.0-47.0); Hemoglobin 10.4 g/dL (12.0-15.0); Immature Granulocyte Absolute 0.02 K/mm3 (0.00-0.031); Immature Granulocyte Percent A 0.2 % (0-0.5); Lymphocytes Absolute Auto 3.07 K/mm3 (0.9-3.2); Lymphocytes Percent Auto 33.7 % (18.3-44.2); Mean Corpuscular HGB Conc 28.4 g/dl (32-36); Mean Corpuscular Hemoglobin 22.2 pg (26-34); Mean Corpuscular Volume 78.2 fl (80-100); Mean Platelet Volume 11.7 fl (7.4-10.4); Monocytes Absolute Auto 0.6 K/mm3 (0.1-0.6); Monocytes Percent Auto 6.9 % (2.6-8.5); Neutrophils Absolute Auto 5.2 K/mm3 (1.3-6.7); Neutrophils Percent Auto 56.8 % (45.5-73.1); Platelet Count Result 415 k/mm3 (150-375); Red Blood Count 4.68 M/mm3 (4.2-5.4); Red Cell Distribution Width 15.9 % (11.5-14.5); White Blood Count 9.1 K/mm3 (4.5-10.0)
[2023-08-03 13:26] LABS: Partial Thromboplastin Time 24.7 SECONDS (22.3-36.8); Prothrombin Time 13.9 Seconds (11.1-14.7)
[2023-08-03 13:27] LABS: Alanine Aminotransferase 19 U/L (6-35); Albumin Level 4.6 g/dL (3.5-5.1); Alkaline Phosphatase 88 U/L (38-126); Anion Gap 9 mmol/L (8-16); Aspartate Amino Transferase 35 U/L (14-36); Bilirubin,Total 0.7 mg/dL (0.2-1.3); Blood Urea Nitrogen 13 mg/dL (7-17); Calcium 9.9 mg/dL (8.4-10.2); Carbon Dioxide 26 mmol/L (22-30); Chloride 104 mmol/L (98-107); Estimated CRCL calculation 81 ml/min; Estimated Glomerular Filt Rate > 60; Glucose 100 mg/dL (65-110); Lipase 78 U/L (23-300); Potassium 3.5 mmol/L (3.4-5.0); Sodium 139 mmol/L (137-145)
[2023-08-03 13:38] LABS: Troponin I < 0.012 ng/mL (0.000-0.034)
[2023-08-03] MEDS: ASPIRIN 81 MG CHEWABLE TABLET 324 MG PO (14:25)
[2023-08-03 14:52] LABS: D Dimer 0.59 ug/mL (<0.48)
--- NOTE | 2023-08-03 16:32 | ECG_ITS ---
Measurements Intervals [place] Rate: 88 P: 50 RI: 151 QRS: 39 QRSD: 80 T: 31 QT: 375 QTc: 454 Interpretive Statements SINUS RHYTHM POSSIBLE LEFT ATRIAL ENLARGEMENT CANNOT RULE OUT SEPTAL INFARCT, AGE INDETERMINATE BORDERLINE T WAVE ABNORMALITY- ANTEROLAT/INF LEADS BASELINE ARTIFACT- I, II, III ABNORMAL ECG COMPARED TO ECG 08/03/2023 13:01:04 NO SIGNIFICANT CHANGES Electronically Signed On 08-04-2023 7:15:25 [employer] by Allen Wallace D.O.
[2023-08-03 16:33] LABS: Troponin I < 0.012 ng/mL (0.000-0.034)
== END 2023-08-03 16:49 | disposition home or self-care (01) ==
PROVIDERS: Emergency Provider Physician Assistant
DX: R07.89 Other chest pain (principal); I10 Essential (primary) hypertension; R94.31 Abnormal electrocardiogram [ECG] [EKG]
CPT/HCPCS: 36415; 71046; 71275; 80053; 83690; 84484; 85025; 85380; 85610; 85730; 93005; 99284; A9270; Q9967